=== PATIENT | female | born 1985 | race African-American/Black ===

== ENCOUNTER 2018-10-25 23:34 | Emergency (ER) | payer SELFPAY ==
[~2018-10-25] VITALS: Ht 172.7 cm; Wt 70.4 kg
[2018-10-26] MEDS: SODIUM CHLORIDE 0.9% 1,000 ML IV ONE (01:02)
[2018-10-26 01:12] LABS: *AMPHETAMINES SCREEN URINE NEGATIVE (NEGATIVE); *BARBITURATES SCREEN URINE NEGATIVE (NEGATIVE); *COCAINE SCREEN URINE NEGATIVE (NEGATIVE); METHADONE URINE SCREEN NEGATIVE (NEGATIVE)
[2018-10-26 01:13] LABS: CANNABINOID URINE SCREEN NEGATIVE (NEGATIVE); OPIATES URINE SCREEN NEGATIVE (NEGATIVE); PHENCYCLIDINE URINE SCREEN NEGATIVE (NEGATIVE)
[2018-10-26 01:15] LABS: *BENZODIAZEPINES SCREEN URINE PRESUMTIVE POSITIVE (NEGATIVE)
[2018-10-26 06:52] VITALS: BP 103/60
== END 2018-10-26 08:25 | disposition left against medical advice (07) ==
LOC: ER 23:34
DX: T42.72XA Poisoning by unspecified antiepileptic and sedative-hypnotic drugs, intentional self-harm, initial encounter (principal); F32.9 Major depressive disorder, single episode, unspecified; Y92.89 Other specified places as the place of occurrence of the external cause
CPT/HCPCS: 80305; 93005; 99284; J7030